=== PATIENT | male | born 1965 ===

== ENCOUNTER 2019-01-14 15:04 | Emergency (ER) | payer OTHER ==
[~2019-01-14] VITALS: Ht 175.3 cm; Wt 104.3 kg
[2019-01-14] MEDS ORDERED: ATENOLOL50 MG (15:59)
[2019-01-14] MEDS ORDERED: [UNRECOGNIZED DRUG - OTHER] (16:00)
== END 2019-01-14 21:30 | disposition home or self-care (01) ==
LOC: ER 15:04
DX: S90.112A Contusion of left great toe without damage to nail, initial encounter (principal); W18.39XA Other fall on same level, initial encounter; Y93.89 Activity, other specified; Y92.89 Other specified places as the place of occurrence of the external cause; Y99.8 Other external cause status; M10.072 Idiopathic gout, left ankle and foot